=== PATIENT | male | born 2000 | race Two or more races ===

== ENCOUNTER 2022-08-01 10:18 | Emergency (ER) | payer SELFPAY ==
[~2022-08-01] VITALS: Ht 172.7 cm; Wt 68.0 kg
--- NOTE | 2022-08-01 10:28 | NUR ---
TO ER 11 FOR EVAL
[2022-08-01] MEDS: ACETAMINOPHEN ES 500 MG TABLET PO ONE (10:30)
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
--- NOTE | 2022-08-01 10:52 | NUR ---
IV CHRISTEN Lugo AC 18G. LABS DRAWN AND COLLECTED AT BEDSIDE
[2022-08-01] MEDS: IV NS 0.9% 1,000 ML BAG IV ONE (11:16)
[2022-08-01 11:19] LABS: BASOPHILS % (AUTO) 0.4 % (0.0-2.0); EOSINOPHILS % (AUTO) 0.3 % (0.0-6.0); HEMATOCRIT 46 % (39-51); HEMOGLOBIN 15.3 g/dL (13.5-17.5); LYMPHOCYTES # (AUTO) 1.3 K/uL (0.8-4.8); LYMPHOCYTES % (AUTO) 12.3 % (20.0-44.0); MEAN CORPUSCULAR HGB CONC 33 g/dl (31.0-36.0); MEAN CORPUSCULAR VOLUME 88 fL (80-96); MONOCYTES # (AUTO) 0.7 K/uL (0.1-1.30); MONOCYTES % (AUTO) 6.9 % (2.0-12.0); NEUTROPHILS # (AUTO) 8.2 K/uL (1.8-8.9); NEUTROPHILS % (AUTO) 80.1 % (43.0-81.0); PLATELET COUNT (AUTO) 315 K/uL (150-450); RED BLOOD CELL COUNT(AUTO) 5.25 MIL/uL (4.5-6.0); WHITE BLOOD COUNT (AUTO) 10.3 K/uL (4.3-11.0)
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
[2022-08-01 11:45] LABS: CALCIUM, SERUM 9.4 mg/dL (8.5-10.1); CARBON DIOXIDE 25 mmol/L (21-32); CHLORIDE 100 mmol/L (98-107); CREATININE 0.9 mg/dL (0.6-1.3); GLUCOSE 80 mg/dL (74-106); POTASSIUM 3.6 mmol/L (3.5-5.1); SODIUM SERUM 137 mmol/L (136-145); UREA NITROGEN, BLOOD 13 mg/dL (7-18)
[2022-08-01 11:52] LABS: ALANINE AMINOTRANSFERASE 38 U/L (12-78); ALBUMIN 4.7 g/dL (3.4-5.0); ALCOHOL, BLOOD < 3 mg/dL (0-0); ALKALINE PHOSPHATASE 92 U/L (46-116); ASPARTATE AMINOTRANSFERASE 91 U/L (15-37); BILIRUBIN,DIRECT 0.3 mg/dL (0.0-0.2); BILIRUBIN,TOTAL 1.3 mg/dL (0.2-1.0); TOTAL PROTEIN, SERUM 8.8 g/dL (6.4-8.2)
[2022-08-01 11:54] LABS: ACETAMINOPHEN 0 ug/ml (10-30)
[2022-08-01] MEDS ORDERED: IBUP-1955 PO (13:02)
[2022-08-01] MEDS: diphenhydrAMINE HCL 50 MG/ML VIAL IV ONE (14:20)
[2022-08-01] MEDS ORDERED: diphenhydrAMINE HCL 50 MG/ML VIAL ONE (14:21)
[2022-08-01] MEDS ORDERED: METOCLOPRAMIDE HCL 10 MG/2 ML VIAL ONE (14:21)
[2022-08-01] MEDS: METOCLOPRAMIDE HCL 10 MG/2 ML VIAL IV ONE (14:26)
[2022-08-01 14:44] LABS: BILIRUBIN,URINE SMALL (NEGATIVE); COLOR,URINE DARK YELLOW (YELLOW); LEUKOCYTE ESTERASE ,URINE NEGATIVE (NEGATIVE); NITRITE, URINE NEGATIVE (NEGATIVE); PROTEIN,URINE NEGATIVE (NEGATIVE); UGLUCOSE NEGATIVE (NEGATIVE)
[2022-08-01 15:19] LABS: BACTERIA,URINE Rare /HPF (None Seen); RBC,URINE 0-2 /HPF (0-2); SQUAMOUS EPITHELIAL CELL,UR Moderate /HPF (None Seen); WBC,URINE 0-2 /HPF (0-3)
[2022-08-01 15:26] VITALS: BP 89/43
--- NOTE | 2022-08-01 15:26 | NUR ---
IV removed. Catheter intact and site benign. Pressure and 4x4 applied to site. No bleeding noted.Patient discharged to home in stable condition. Written and verbal after care instructions given. Patient verbalizes understanding of instruction.
== END 2022-08-01 15:28 | disposition home or self-care (01) ==
LOC: ER 10:21
DX: R51.9 Headache, unspecified (principal); Z60.2 Problems related to living alone
CPT/HCPCS: 99285; 96374; 96361; 96375; 93005; 71045; 70450; 85025; 80048; 80076; 81001; 36415; 80143; 80320; 80307; J1200; J2765; J7030; G0480